=== PATIENT | male | born 1990 | race American Indian/Alaskan Native ===

== ENCOUNTER 2017-06-29 12:52 | Emergency (ER) | payer OTHER ==
[2017-06-29 12:57] VITALS: BMI 24.7
[2017-06-29 12:58] VITALS: BP 131/89; PULSE 88; RESP 18; TEMP 99.9; O2SAT 99
[2017-06-29 14:03] LABS: SQUAMOUS EPITHIAL < 1 /hpf (0-5); URINE BACTERIA OCC (<OCC); URINE BILIRUBIN NEGATIVE (NEGATIVE); URINE BLOOD 2+ (NEGATIVE); URINE CLARITY Hazy (Clear); URINE COLOR Yellow (YELLOW); URINE GLUCOSE (UA) NORMAL (Normal); URINE LEUKOCYTE ESTERASE 3+ Leu/uL (Negative); URINE NITRATE NEGATIVE (NEGATIVE); URINE PROTEIN 1+ mg/dL (NEGATIVE); URINE UROBILINOGEN NORMAL mg/dL (0.2-1.0)
--- NOTE | 2017-06-29 14:53 | US ---
HISTORY: right testicular tenderness TECHNIQUE: Realtime sonography through the scrotum with color and doppler flow. COMPARISON: None Available. FINDINGS: RIGHT TESTICLE: Measures 3.9 x 3.0 x 3.2 cm. Homogeneous echotexture blood flow is demonstrated. RIGHT EPIDIDYMIS: Measures approximately 5.0 x 1.3 x 3.0 cm. Heterogeneous echotexture. Increased vascularity. LEFT TESTICLE: Measures 4.0 x 2.3 x 3.2 cm. Homogeneous echotexture. Blood flow is demonstrated. LEFT EPIDIDYMIS: Measures approximately 1.5 x 1.1 x 1.9 cm. Grossly unremarkable. HYDROCELE: Small bilateral hydroceles. VARICOCELE: None. OTHER FINDINGS: None. IMPRESSION: Enlarged heterogeneous right epididymis with evidence of increased vascularity. Constellation of findings concerning for epididymitis. Correlate clinically. Small bilateral hydroceles.
[2017-06-29] MEDS ORDERED: cefTRIAXone (Rocephin) 250 mg Inj IM STA (15:33)
--- NOTE | 2017-06-29 16:23 | C.PDOC ---
History Of Present Illness 26 yr old male presents to the ER with scrotal pain and mild pain with urination for the past 5 days. Patient states he is sexually active and occasionally uses protection. Denies fever, nausea, vomiting, abdominal pain, hematuria, penile discharge or rash. Time Seen by Provider: 06/29/17 13:25 Chief Complaint (Nursing): Groin Pain History Per: Patient History/Exam Limitations: no limitations Onset/Duration Of Symptoms: Days (5) Past Medical History Reviewed: Historical Data, Nursing Documentation, Vital Signs Vital Signs: Last Vital Signs Temp 99.9 F H 06/29/17 12:56 Pulse 88 06/29/17 12:56 Resp 18 06/29/17 12:56 BP 131/89 06/29/17 12:56 Pulse Ox 99 06/29/17 16:27 Family History: States: No Known Family Hx - Social History Hx Alcohol Use: No Hx Substance Use: No - Immunization History Hx Tetanus Toxoid Vaccination: No Hx Influenza Vaccination: No Hx Pneumococcal Vaccination: No Review Of Systems Except As Marked, All Systems Reviewed And Found Negative. Constitutional: Negative for: Fever Gastrointestinal: Negative for: Nausea, Vomiting, Abdominal Pain Genitourinary: Positive for: Scrotal Pain. Negative for: Hematuria, Penile Discharge, Penile Pain Physical Exam - Physical Exam Appears: Non-toxic, No Acute Distress Skin: Warm, Dry Head: Atraumatic, Normacephalic Male Genital: Testicular Tenderness (Right ) Extremity: Normal ROM, No Swelling Neurological/Psych: Oriented x3, Normal Speech, Normal Motor ED Course And Treatment O2 Sat by Pulse Oximetry: 99 (RA ) Pulse Ox Interpretation: Normal - CT Scan/US US - Testicular Other Rad Studies (CT/US): Read By Radiologist, Radiology Report Reviewed CT/US Interpretation: HISTORY: right testicular tenderness. TECHNIQUE: Realtime sonography through the scrotum with color and doppler flow. COMPARISON : None Available. FINDINGS: RIGHT TESTICLE: Measures 3.9 x 3.0 x 3.2 cm. Homogeneous echotexture blood flow is demonstrated. RIGHT EPIDIDYMIS: Measures approximately 5.0 x 1.3 x 3.0 cm. Heterogeneous echotexture. Increased vascularity. LEFT TESTICLE: Measures 4.0 x 2.3 x 3.2 cm. Homogeneous echotexture. Blood flow is demonstrated. LEFT EPIDIDYMIS: Measures approximately 1.5 x 1.1 x 1.9 cm. Grossly unremarkable. HYDROCELE: Small bilateral hydroceles. VARICOCELE: None. OTHER FINDINGS: None. IMPRESSION: Enlarged heterogeneous right epididymis with evidence of increased vascularity. Constellation of findings concerning for epididymitis. Correlate clinically. Small bilateral hydroceles. Medical Decision Making Medical Decision Making: PLAN: * US - Testicular * Chlamydia GC * Urinalysis * Zithromax PO * Rocephin IM Disposition - Disposition Referrals: [facility] [Outside] [facility] [Outside] Disposition: HOME/ ROUTINE Disposition Time: 15:15 Condition: GOOD Additional Instructions: Thank you for letting us take care of you today. Your provider was Dr. Griffin. You were treated for testicular pain. The emergency medical care you received today was directed at your acute symptoms. If you were prescribed any medication, please fill it and take as directed. It may take several days for your symptoms to resolve. Return to the Emergency Department if your symptoms worsen, do not improve, or if you have any other problems. Please contact your doctor or call one of the physicians/clinics you have been referred to that are listed on the Patient Visit Information form that is included in your discharge packet. Bring any paperwork you were given at discharge with you along with any medications you are taking to your follow up visit. Our treatment cannot replace ongoing medical care by a primary care provider (PCP) outside of the emergency department. Thank you for allowing the [facility] team to be part of your care today. You had a urine culture: It will take several days for the results, if any change in treatment is needed we will contact you. Follow up with the clinic in 3-4 days for outpatient care. Instructions: Epididymitis (ED) Forms: [employer] (Turkmen) - Clinical Impression Clinical Impression: Epididymitis - Scribe Statement The provider has reviewed the documentation as recorded by the Elianaibe Lorna Jackson Provider Attestation: All medical record entries made by the Elianaibmaria g were at my direction and personally dictated by me. I have reviewed the chart and agree that the record accurately reflects my personal performance of the history, physical exam, medical decision making, and the department course for this patient. I have also personally directed, reviewed, and agree with the discharge instructions and disposition.
== END 2017-06-29 16:01 | disposition home or self-care (01) ==
LOC: C.ER 12:52
DX: N45.1 Epididymitis (principal)